=== PATIENT | female | born 2000 | race Caucasian/White ===

== ENCOUNTER → 2024-09-29 | Outpatient (CLI) | payer OTHER ==
[2024-09-29 15:17] LABS: GLUCOSE CHALLENGE TEST 1 HOUR 122 MG/DL (LESS THAN 140); PLATELET COUNT, AUTOMATED 241 10^3/uL (150-450)
[2024-09-29 15:52] LABS: HIV 1&2 SCREEN NEGATIVE (NEGATIVE)
[2024-09-29 16:00] LABS: HEPATITIS C VIRUS ABY INDEX 0.10 INDEX (<0.8)
[2024-09-29 16:13] LABS: Trichomonas vaginalis (AMP) NOT DETECTED (NEGATIVE)
[2024-09-29 16:36] LABS: GC DNA AMPLIFICATION NEGATIVE (NEGATIVE)
== END ==
LOC: M PLALAB 10:42
PROVIDERS: ATTEND Advanced Practice Midwife
DX: Z34.02 Encounter for supervision of normal first pregnancy, second trimester (principal)

== ENCOUNTER 2024-11-06 13:35 | Outpatient (CLI) | payer OTHER ==
[~2024-11-06] VITALS: Ht 167.6 cm; Wt 95.2 kg
[2024-11-06] MEDS ORDERED: VENL225T PO (14:00)
[2024-11-06] MEDS ORDERED: ECOT81TA5 PO (14:00)
[2024-11-06] MEDS ORDERED: PRENTAB9 PO (14:00)
[2024-11-06 14:03] VITALS: BP 106/68
[2024-11-06] MEDS: ACETAMINOPHEN 500 MG TAB PO ONE (14:33)
[2024-11-06 14:36] LABS: APPEARANCE, URINE HAZY (CLEAR); BACTERIA, URINE AUTO 1+ (NEGATIVE); BILIRUBIN, URINE AUTO NEGATIVE (NEGATIVE); BLOOD, URINE BLOOD NEGATIVE (NEGATIVE); GLUCOSE, URINE (UA) AUTO NEGATIVE (NEGATIVE); KETONE, URINE AUTO NEGATIVE (NEGATIVE); LEUKOCYTE ESTERASE, URINE AUTO 2+ (NEGATIVE); MUCUS, URINE SMALL (NEGATIVE); NITRITE, URINE AUTO NEGATIVE (NEGATIVE); PROTEIN, URINE AUTO NEGATIVE (NEGATIVE); RBC, URINE AUTO 2 /HPF (0-3); SPECIFIC GRAVITY URINE AUTO 1.009 (1.002-1.035); SQUAMOUS EPITHELIAL CELL UR AU 5 /HPF (0-6); UROBILINOGEN, URINE AUTO 0.2 mg/dL (0.0-2.0); WBC, URINE AUTO 10 /HPF (0-3)
== END 2024-11-06 15:00 | disposition home or self-care (01) ==
LOC: M LDO 13:35
PROVIDERS: ATTEND Advanced Practice Midwife
DX: O26.893 Other specified pregnancy related conditions, third trimester (principal); O99.343 Other mental disorders complicating pregnancy, third trimester; O99.213 Obesity complicating pregnancy, third trimester; M54.50 Low back pain, unspecified; F32.A Depression, unspecified; E66.9 Obesity, unspecified; Z3A.33 33 weeks gestation of pregnancy
CPT/HCPCS: 59025; 81001; 87086; G0463

== ENCOUNTER → 2024-11-11 | Outpatient (CLI) | payer OTHER ==
[~2024-11-11] MED LIST: ECOT81TA5 PO; PRENTAB9 PO; VENL225T PO
== END ==
LOC: M WHC 13:02
PROVIDERS: ATTEND Advanced Practice Midwife
DX: Z34.03 Encounter for supervision of normal first pregnancy, third trimester (principal); Z3A.34 34 weeks gestation of pregnancy

== ENCOUNTER → 2024-11-16 | Outpatient (CLI) | payer OTHER | LOC: M RAD 12:49 | PROVIDERS: ATTEND Advanced Practice Midwife | DX: O36.5930 Maternal care for other known or suspected poor fetal growth, third trimester, not applicable or unspecified (principal); Z3A.32 32 weeks gestation of pregnancy ==

== ENCOUNTER → 2024-11-18 | Outpatient (REF) | payer OTHER | LOC: M SFHCWAGY 13:31 | PROVIDERS: ATTEND Advanced Practice Midwife | DX: Z34.83 Encounter for supervision of other normal pregnancy, third trimester (principal) ==